=== PATIENT | female | born 1975 | race Caucasian/White ===

== ENCOUNTER 2018-07-04 20:11 | Emergency (ER) | payer OTHER ==
[~2018-07-04] VITALS: Ht 157.5 cm; Wt 78.7 kg
--- NOTE | 2018-07-04 20:38 | NUR ---
RIGHT SIDED ABD PAIN PT REPORTS SHE WAS SENT HERE BY HER DOCTOR FOR A HERNIA
[2018-07-04 20:39] LABS: BASOPHILS # (AUTO) 0.04 x10^3/uL (0-0.1); BASOPHILS % (AUTO) 1 % (0-1); EOSINOPHILS # (AUTO) 0.12 x10^3/uL (0-0.4); EOSINOPHILS % (AUTO) 2 % (1-7); LYMPHOCYTES # (AUTO) 2.51 x10^3/uL (1-3.4); LYMPHOCYTES % (AUTO) 34 % (22-44); MD NO; MEAN CORPUSCULAR HEMOGLOBIN 30.7 pg (27.0-34.8); MEAN CORPUSCULAR HGB CONC 33.9 g/dL (32.4-35.8); MEAN CORPUSCULAR VOLUME 90.7 fL (80-100); MEAN PLATELET VOLUME 7.9 fL (7.4-10.4); MONOCYTES # (AUTO) 0.38 x10^3/uL (0.2-0.8); MONOCYTES % (AUTO) 5 % (2-9); NEUTROPHILS # (AUTO) 4.25 x10^3/uL (1.8-6.8); NEUTROPHILS % (AUTO) 58 % (42-75); PLATELET COUNT 307 x10^3/uL (130-400); RED BLOOD COUNT 4.64 x10^6/uL (3.82-5.3); RED CELL DISTRIBUTION WIDTH 12.2 % (9.6-15.2)
[2018-07-04 20:48] LABS: ALANINE AMINOTRANSFERASE 28 U/L (12-78); ALBUMIN 3.9 g/dL (3.4-5.0); ANION GAP 8 mmol/L (5-15); CALCIUM 9.2 mg/dL (8.5-10.1); CHLORIDE 104 mmol/L (98-107); CREATININE 0.81 mg/dL (0.55-1.02)
[2018-07-04 20:50] LABS: ALKALINE PHOSPHATASE 89 U/L (45-117); BILIRUBIN,TOTAL 0.2 mg/dL (0.2-1.0); TOTAL PROTEIN 7.8 g/dL (6.4-8.2)
--- NOTE | 2018-07-04 21:18 | NUR ---
erp at bedside given urine cup forua pt up ambulated to bathroom with stable gait
--- NOTE | 2018-07-04 21:51 | NUR ---
ua in lab
--- NOTE | 2018-07-04 22:00 | NUR ---
PT IS IN US NOW
[2018-07-04 22:10] LABS: MICROSCOPIC NOT IND
[2018-07-04 22:11] LABS: CULTURE INDICATED? NO
--- NOTE | 2018-07-04 23:12 | NUR ---
Patient/Caregiver given discharge instructions and they have confirmed that they understand the instructions. Patient ambulatory with steady gait.
[2018-07-04 23:13] VITALS: BP 142/84
== END 2018-07-04 23:15 | disposition home or self-care (01) ==
LOC: ED 22:55
DX: R10.11 Right upper quadrant pain (principal); R10.31 Right lower quadrant pain; F41.1 Generalized anxiety disorder
CPT/HCPCS: 36415; 74021; 76700; 80053; 81003; 83690; 85025; 99284

== ENCOUNTER 2019-04-07 15:07 | Emergency (ER) | payer OTHER ==
[~2019-04-07] VITALS: Ht 160 cm; Wt 80.1 kg
--- NOTE | 2019-04-07 15:35 | NUR ---
THIS IS A 43 YO FEMALE COMING IN FOR RIGHT LOWER LEG WOUND AND SWELLING. PATIENT STATES THAT SHE WAS SEEN 2 WEEKS AGO FOR THE SAME PROBLEM, WAS PUT ON A TEN DAY COURSE OF ABX AND THE WOUND GOT BETTER, THEN TWO DAYS AGO IT BECAME PAINFUL, RED, WARM, AND SWOLLEN. PATIENT STATES THAT SHE HAD A FEVER AND CHILLS LAST NIGHT, MEICATED WITH TYLENOL. PATIENT PLACED ON CONTINUOUS SPO2 AT 97%, CYCLE BP Q1HR. CALL LIGHT IN REACH, DENIES FURTHER NEEDS AT THIS TIME.
[2019-04-07] MEDS ORDERED: MORPHINE SULFATE 4 MG/ML, 1ML ONE (16:00)
[2019-04-07] MEDS ORDERED: VANCOMYCIN PER PHARMACY MC PRN (16:00)
[2019-04-07] MEDS ORDERED: VANCOMYCIN 1,600 MG in SODIUM CHLORIDE 0.9% 250 ML IV ONE (16:00)
[2019-04-07] MEDS ORDERED: PHARMACOKINETIC CONSULTATION MC ONE (16:00)
[2019-04-07] MEDS ORDERED: ONDANSETRON 2MG/ML, 2ML ONE (16:00)
[2019-04-07] MEDS ORDERED: MORPHINE SULFATE 4 MG/ML, 1ML IVPush PRN (16:00)
[2019-04-07] MEDS ORDERED: AMPICILLIN/SULBACTAM 3 GM in SODIUM CHLORIDE 0.9% 100 ML IV ONE (16:00)
[2019-04-07] MEDS ORDERED: ONDANSETRON 2MG/ML, 2ML IVPush ONE (16:00)
[2019-04-07] MEDS ORDERED: LIDOCAINE-MPF 1%, 5ML ONE (16:00)
--- NOTE | 2019-04-07 16:24 | NUR ---
IV ABX STARTED AFTER 2 BLOOD CULTURES DRAWN. PT MEDICATED PER EMAR, RESTING COMFORTABLY, DENIES FUTHER NEEDS AT THIS TIME.
[2019-04-07 16:32] LABS: BASOPHILS # (AUTO) 0.04 x10^3/uL (0-0.1); BASOPHILS % (AUTO) 0 % (0-1); EOSINOPHILS # (AUTO) 0.14 x10^3/uL (0-0.4); EOSINOPHILS % (AUTO) 2 % (1-7); LYMPHOCYTES # (AUTO) 1.89 x10^3/uL (1-3.4); LYMPHOCYTES % (AUTO) 21 % (22-44); MD NO; MEAN CORPUSCULAR HEMOGLOBIN 30.1 pg (27.0-34.8); MEAN CORPUSCULAR HGB CONC 33.6 g/dL (32.4-35.8); MEAN CORPUSCULAR VOLUME 89.7 fL (80-100); MONOCYTES # (AUTO) 0.44 x10^3/uL (0.2-0.8); MONOCYTES % (AUTO) 5 % (2-9); NEUTROPHILS # (AUTO) 6.36 x10^3/uL (1.8-6.8); NEUTROPHILS % (AUTO) 72 % (42-75); PLATELET COUNT 312 x10^3/uL (130-400); RED BLOOD COUNT 4.38 x10^6/uL (3.82-5.3); RED CELL DISTRIBUTION WIDTH 12.7 % (9.6-15.2)
[2019-04-07 16:33] LABS: ALANINE AMINOTRANSFERASE 45 U/L (12-78); ALBUMIN 3.9 g/dL (3.4-5.0); ANION GAP 4 mmol/L (5-15); CALCIUM 9.3 mg/dL (8.5-10.1); CHLORIDE 105 mmol/L (98-107)
[2019-04-07 16:35] LABS: ALKALINE PHOSPHATASE 106 U/L (45-117); BILIRUBIN,TOTAL 0.4 mg/dL (0.2-1.0); TOTAL PROTEIN 8.2 g/dL (6.4-8.2)
--- NOTE | 2019-04-07 16:43 | NUR ---
SMELTER CHARGER IN ROOM DOING I&D
--- NOTE | 2019-04-07 17:08 | NUR ---
PT MEDICATED PER EMAR, SECOND ABX INFUSING AT THIS TIME.
--- NOTE | 2019-04-07 17:40 | NUR ---
PT RESTING ON [place], CALL LIGHT IN REACH, ABX RUNNING. DENIES NEEDS AT THIS TIME.
--- NOTE | 2019-04-07 17:54 | NUR ---
PT STATES SHE IS FEELING WARM AND ITCHY ON HER NECK AND BACK. ERYTHEMA NOTED, MD NOTIFIED. MD ORDERS TO TURN DOWN INFUSION RATE TO 90ML/HR. ABX INFUSION RESTARTED, WILL CONTINUE TO MONITOR. PATIENT RESTING, CALL LIGHT IN REACH, DENIES FURTHER NEEDS AT THIS TIME.
--- NOTE | 2019-04-07 18:26 | NUR ---
PATIENT STATES SHE IS FEELING BETTER, NO LONGER HOT AND ITCHY. IV ABX RUNNING AT LOWER INFUSION RATE.
--- NOTE | 2019-04-07 19:14 | NUR ---
REPORT GIVEN TO KARLEE TRAN. PLAN OF CARE DISCUSSED.
[2019-04-07 20:51] VITALS: BP 124/74
== END 2019-04-07 20:54 | disposition home or self-care (01) ==
LOC: ED 15:51
DX: L03.116 Cellulitis of left lower limb (principal); F41.1 Generalized anxiety disorder
CPT/HCPCS: 10060; 36415; 80053; 83605; 84145; 85025; 87040; 96365; 96366; 96367; 96375; 99283; J0295; J2270; J2405; J3370; J7050; 51702

== ENCOUNTER 2019-04-10 13:52 | Emergency (ER) | payer OTHER ==
[~2019-04-10] VITALS: Ht 165.1 cm; Wt 79.0 kg
[2019-04-10 14:12] VITALS: BP 109/70
--- NOTE | 2019-04-10 15:05 | NUR ---
DC EDUCATION PROVIDED, PT DEMONSTRATES UNDERSTANDING. PT AMBULATED STEADILY TO DC WITH RN AND FAMILY.
== END 2019-04-10 15:08 | disposition home or self-care (01) ==
LOC: ED 15:02
DX: Z48.01 Encounter for change or removal of surgical wound dressing (principal)
CPT/HCPCS: 99283

== ENCOUNTER 2019-04-13 14:03 | Emergency (ER) | payer OTHER ==
[~2019-04-13] VITALS: Ht 165.1 cm; Wt 80.5 kg
[2019-04-13 14:14] VITALS: BP 114/74
== END 2019-04-13 14:52 | disposition home or self-care (01) ==
LOC: ED 14:50
DX: L02.416 Cutaneous abscess of left lower limb (principal)
CPT/HCPCS: 99281

== ENCOUNTER 2020-02-05 13:25 | Emergency (ER) | payer OTHER ==
[~2020-02-05] VITALS: Ht 170.2 cm; Wt 78.9 kg
[2020-02-05 14:07] LABS: BASOPHILS # (AUTO) 0.02 x10^3/uL (0-0.1); BASOPHILS % (AUTO) 0 % (0-1); EOSINOPHILS # (AUTO) 0.07 x10^3/uL (0-0.4); EOSINOPHILS % (AUTO) 1 % (1-7); LYMPHOCYTES # (AUTO) 1.88 x10^3/uL (1-3.4); LYMPHOCYTES % (AUTO) 23 % (22-44); MD NO; MEAN CORPUSCULAR HEMOGLOBIN 30.9 pg (27.0-34.8); MEAN CORPUSCULAR HGB CONC 33.9 g/dL (32.4-35.8); MEAN CORPUSCULAR VOLUME 91.3 fL (80-100); MEAN PLATELET VOLUME 7.9 fL (7.4-10.4); MONOCYTES # (AUTO) 0.36 x10^3/uL (0.2-0.8); MONOCYTES % (AUTO) 4 % (2-9); NEUTROPHILS # (AUTO) 5.96 x10^3/uL (1.8-6.8); NEUTROPHILS % (AUTO) 72 % (42-75); PLATELET COUNT 301 x10^3/uL (130-400); RED BLOOD COUNT 4.54 x10^6/uL (3.82-5.3); RED CELL DISTRIBUTION WIDTH 12.1 % (9.6-15.2)
[2020-02-05 14:20] LABS: ALANINE AMINOTRANSFERASE 25 U/L (12-78); ALBUMIN 3.8 g/dL (3.4-5.0); ANION GAP 6 mmol/L (5-15); CHLORIDE 108 mmol/L (98-107); CREATININE 0.83 mg/dL (0.55-1.02)
[2020-02-05 14:22] LABS: ALKALINE PHOSPHATASE 84 U/L (45-117); BILIRUBIN,TOTAL 0.7 mg/dL (0.2-1.0); TOTAL PROTEIN 8.1 g/dL (6.4-8.2)
--- NOTE | 2020-02-05 15:20 | NUR ---
APPRAISAL COORDINATOR: PT TO ROOM VIA WHEELCHAIR AT THIS TIME. CHANTAL.
--- NOTE | 2020-02-05 15:33 | NUR ---
ASSUMED CARE OF PATIENT. PATIENT REPORTS RENDESS/PAIN/SWELLING IN RIGHT LEG THAT STARTED X3 DAYS AGO. PT WAS SENT HERE BY HER PRIMARY CARE DOCTOR. VS STABLE. NO ACUTE DISTRESS NOTED. WILL CONTINUE TO MONITOR.
--- NOTE | 2020-02-05 16:13 | NUR ---
DR LUGO IN ROOM
[2020-02-05] MEDS ORDERED: KETOROLAC 30 MG/1 ML IVPush ONE (16:30)
[2020-02-05] MEDS ORDERED: CLINDAMYCIN PMX 600MG/50ML 50 ML IV ONE (16:30)
[2020-02-05] MEDS ORDERED: CLINDAMYCIN PMX 600MG/50ML 50 ML ONE (16:34)
[2020-02-05 16:37] LABS: CALCIUM 9.8 mg/dL (8.5-10.1)
--- NOTE | 2020-02-05 16:38 | NUR ---
pt refused toradol. Per Dr Shelby no blood cultures needed.
[2020-02-05 17:41] VITALS: BP 128/65
== END 2020-02-05 17:43 | disposition home or self-care (01) ==
LOC: ED 17:00
DX: L03.115 Cellulitis of right lower limb (principal); M79.671 Pain in right foot
CPT/HCPCS: 36415; 80053; 85025; 96365; 99285